=== PATIENT | female | born 1945 | race African-American/Black ===

== ENCOUNTER → 2019-01-23 09:44 | Outpatient (CLI) | payer OTHER, SELFPAY ==
--- NOTE | 2019-01-29 12:21 | PM.TREADMILL ---
Cardiac Stress Test Report Referral & Results Date Patient Seen: 01/29/19 Requesting provider: Fermin Bonilla Indication: Chest pain Rest ECG: Unremarkable Procedure Note: After both written and verbal informed consent the patient had an IV started by the diagnostic imaging RN and then was hooked up to the treadmill monitoring system. The patient was placed on the treadmill at 1 mile an hour with no elevation and was then injected with the Gogo scan material. The Cardiolite was then immediately administered. The patient spent an additional 2-3 minutes on the treadmill before being returned to the [facility] in the supine position. The patient had a normal response to all infused materials. Impression: Please see perfusion imaging report for details regarding possible ischemia Please note: Actual ECG tracings can be found in the PACS system.
--- NOTE | 2019-01-29 14:16 | DI.NM.S_ITS ---
DATE OF SERVICE: 01/23/2019 PROCEDURE PERFORMED: Pharmacologic stress and rest myocardial perfusion imaging with gating to assess ejection fraction and regional wall motion. ORDERING PROVIDER: Fermin Bonilla MD. INDICATIONS: The patient is a 73-year-old diabetic female with significant exertional dyspnea and chest pressure. CARDIAC STRESS: The patient was initially scheduled for stress on 01/23/2019, although had caffeine and therefore a resting scan was obtained using 13.0 mCi of technetium-99 Myoview and she was imaged 30 minutes later. She returned on 01/29/2019 and was injected with 0.4 mg of regadenoson per protocol, augmented by walking. With this, she had a no chest discomfort and had a normal hemodynamic response. Her resting ECG shows probable LVH with borderline repolarization abnormality that there are no significant ST segment shifts with stress. There were rare isolated PVCs but no concerning arrhythmias. Per protocol, 26.8 mCi a technetium-99 Myoview was injected, and the patient was imaged 20 minutes later using a gated SPECT acquisition protocol. FINDINGS: 1. Raw Data: There is fairly good myocardial tracer uptake. The lung/heart ratio is normal at 0.29. While the calculated TID ratio is elevated at 1.59, this is nonspecific with the use of vasodilator, specifically with a considerable delay between the stress and resting images. Visually, there is no significant increase in left ventricular volume on the post stress images. 2. Quantitative Gated SPECT: Post stress ejection fraction is estimated at 76% without any focal wall motion abnormality. Resting ejection fraction is estimated at 73% with a normal resting end-diastolic volume of 82 mL. 3. Myocardial Perfusion Imaging: Post stress supine images show a normal myocardial perfusion imaging pattern without any perfusion defects, supported by normal perfusion imaging in the prone position. The resting images show an identical perfusion pattern without any areas of improvement. CONCLUSION: 1. Normal myocardial perfusion study. 2. No evidence of myocardial ischemia or previous myocardial infarction. 3. Normal left ventricular systolic function without any regional wall motion abnormalities. While the transient ischemic ratio is elevated at 1.59, this is nonspecific because of the use of vasodilator stress and the delay between the stress and resting images. 4. No angina or ECG evidence of ischemia with pharmacologic vasodilator stress. Ralf Winkler - MICHAEL/tiffany/ doc#: [id number]/job#: [id number] dd: 01/29/2019 13:22:00 dt: 01/29/2019 13:40:00 DICTATING MD/COPIES TO: Job Parks MD; Fermin Bonilla MD COPIES MNE: SINAN CA
== END ==
PROVIDERS: PCP Student in an Organized Health Care Education/Training Program; Visit Provider Student in an Organized Health Care Education/Training Program
DX: R06.4 Hyperventilation (principal)
CPT/HCPCS: 78452; 93016; 93017; 93018; A9502; J2785

== ENCOUNTER → 2021-01-29 09:49 | Outpatient (CLI) | payer MEDICARE, SELFPAY ==
[2021-01-29 11:04] LABS: COVID19 -Nasal RAPID Negative (Negative)
--- NOTE | 2021-01-29 18:49 | DI.NM.S_ITS ---
DATE OF SERVICE: 01/29/2021 PROCEDURE: Pharmacological perfusion study. INDICATIONS: Abnormal EKG with underlying hypertension. RADIOPHARMACEUTICAL: 25.9 millicurie technetium-99m Myoview IV was injected at stress and 9.8 millicurie technetium-99m Myoview IV was injected at rest. CARDIAC STRESS: The patient underwent IV Lexiscan perfusion study under the supervision of an attending staff using standard Lexiscan protocol. Baseline EKG revealed sinus rhythm with sinus bradycardia with heart rate in 40s and 50s. The patient had atenolol this morning. Stress EKG did not reveal any convincing ischemic changes. No new significant arrhythmia is seen. There were baseline repolarization changes, as well. Remained hemodynamically stable. During Lexiscan injection, had throat discomfort, but no overt chest pain. RAW DATA: There is breast shadow seen. There was increased subdiaphragmatic activity. GATED STUDY: Stress LV ejection fraction 68 percent without any obvious wall motion abnormalities. Resting end-diastolic volume 87 mL. TID ratio 1.58, which appears to be abnormal. Lung/heart ratio 0.30, which is within normal limits. MYOCARDIAL PERFUSION: Stress supine and resting supine images revealed small size, mildly decreased perfusion of basal inferior wall, which got resolved during prone images suggestive of diaphragmatic tissue attenuation artifact. CONCLUSION: 1. As far as perfusion scan is concerned, there is a normal myocardial perfusion during stress prone with evidence of diaphragmatic tissue attenuation artifact. However TID ratio is 1.58, which is abnormal. Abnormal TID usually suggests left main or multivessel-like triple-vessel disease. Balanced ischemia can reflect as normal myocardial perfusion. 2. Hence, I will call this study an abnormal myocardial perfusion study. Clinical correlation is recommended. If pretest probability for coronary artery disease is high, consider cardiac evaluation and possible LHC. Winkler Wilmanernie - BARBARA/tiffany/shen doc#: [id number]/job#: [id number] dd: 01/29/2021 17:12:00 dt: 01/29/2021 18:26:00 DICTATING MD/COPIES TO: Rehan Conde MD COPIES MNE: YENI;
== END ==
PROVIDERS: Student in an Organized Health Care Education/Training Program; PCP Family Medicine; Referring Provider Family Medicine; Visit Provider Family Medicine
DX: R94.31 Abnormal electrocardiogram [ECG] [EKG] (principal); R94.39 Abnormal result of other cardiovascular function study; I10 Essential (primary) hypertension; Z20.822 Contact with and (suspected) exposure to COVID-19
CPT/HCPCS: 78452; 87635; 93017; A9502; J2785